=== PATIENT | male | born 1985 | race African-American/Black ===

== ENCOUNTER 2016-05-08 17:56 | Emergency (ER) | payer SELFPAY ==
[2016-05-08 18:05] VITALS: BP 157/90
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
== END 2016-05-08 19:10 | disposition home or self-care (01) ==
LOC: ER 17:56
DX: S02.2XXA Fracture of nasal bones, initial encounter for closed fracture (principal); W22.8XXA Striking against or struck by other objects, initial encounter
CPT/HCPCS: 70486; 99283

== ENCOUNTER 2017-02-10 17:24 | Emergency (ER) | payer SELFPAY ==
--- NOTE | 2017-02-10 18:08 | ER Document Report ---
ED Neuro Symptoms/Deficit - General Chief Complaint: Facial Droop Stated Complaint: FACIAL NUMBNESS Time Seen by Provider: 02/10/17 17:51 Mode of Arrival: Ambulatory Information source: Patient Notes: This 31-year-old male patient comes emergency room with about a one-week history of left-sided facial weakness. Started with a headache on the left side and behind the eyes. He noticed his left face became weak and drawn. There was some tingling sensation. There are no other symptoms. TRAVEL OUTSIDE OF THE [place] IN LAST 30 DAYS: No - Related Data Allergies/Adverse Reactions: No Known Allergies Allergy (Verified 05/08/16 18:39) Past Medical History - General Information source: Patient - Social History Smoking Status: Never Smoker Cigarette use (# per day): No Chew tobacco use (# tins/day): No Smoking Education Provided: No Frequency of alcohol use: Occasional Drug Abuse: None Lives with: Spouse/Significant other Family History: Reviewed & Not Pertinent, Arthritis, DM, Hypertension - Past Medical History Cardiac Medical History: Reports: None Pulmonary Medical History: Reports: None EENT Medical History: Reports: None Neurological Medical History: Reports: None Renal/ Medical History: Reports: None GI Medical History: Reports: None Musculoskeltal Medical History: Reports Hx Musculoskeletal Trauma Psychiatric Medical History: Reports: None Infectious Medical History: Reports: None Past Surgical History: Reports: Hx Orthopedic Surgery - Screw placed in right 4th digit of hand. - Immunizations Immunizations up to date: No Hx Diphtheria, Pertussis, Tetanus Vaccination: Yes Review of Systems - Review of Systems Constitutional: No symptoms reported EENT: See HPI Cardiovascular: No symptoms reported Respiratory: No symptoms reported Gastrointestinal: No symptoms reported Genitourinary: No symptoms reported Musculoskeletal: No symptoms reported Skin: No symptoms reported Hematologic/Lymphatic: No symptoms reported Neurological/Psychological: See HPI Physical Exam - Vital signs Vitals: Temp Pulse Resp BP Pulse Ox 99.4 F 75 18 124/85 97 02/10/17 17:30 02/10/17 17:30 02/10/17 17:30 02/10/17 17:30 02/10/17 17:30 Interpretation: Normal - General General appearance: Appears well, Alert In distress: None - HEENT Head: Normocephalic, Atraumatic Eyes: Normal Extraocular movements intact: Yes Pupils: PERRL Neck: Normal Notes: See the neurological exam below - Respiratory Respiratory status: No respiratory distress - Cardiovascular Rhythm: Regular - Abdominal Inspection: Normal - Back Back: Normal - Extremities General upper extremity: Normal inspection General lower extremity: Normal inspection - Neurological Neuro grossly intact: No Cranial nerves: Facial palsy. No: Forehead sparing Cerebellar coordination: Normal Motor strength normal: LUE, RUE, LLE, RLE Additional motor exam normals: Equal personal loan specialist Notes: Patient is unable to raise his left eyebrow, he is able to close the eye completely but it takes a fair amount of effort to do this. He is able to pull back the left corner of the mouth some but again it takes a fair amount of effort to do this. The tongue does protrude out straight. 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 - Vital Signs Vital signs: Temp Pulse Resp BP Pulse Ox 99.4 F 75 18 124/85 97 02/10/17 17:30 02/10/17 17:30 02/10/17 17:30 02/10/17 17:30 02/10/17 17:30 Discharge - Discharge Clinical Impression: Jarvis's palsy Condition: Stable Disposition: HOME, SELF-CARE Additional Instructions: [place]' Palsy You have been diagnosed as having Jarvis's Palsy -- a paralysis of certain muscles of the face. It's caused by a temporary paralysis of the nerve which controls the muscles. The cause is unknown, but it's thought to be caused by a virus in most cases. The physician's exam shows that this is NOT a stroke. Jarvis's Palsy usually gets better by itself. There is no cure. Sometimes cortisone-type medication is given to decrease nerve swelling. This problem is usually temporary, lasting about three weeks. During that time, you must protect the eye from injury (because the eyelid muscles often do not cover it). Ointment or a patch may be necessary. Be sure to follow up as instructed, and call the doctor at once if new symptoms arise. Report any eye pain, decreasing vision or double vision, or any numbness or weakness outside the face area. //////////////////////////////////////////////////////////////////////////////// ///////////////////////////////////////////////////////////////////////////// Take medications as prescribed. Tape your eye shut at night when you are sleeping. Use lubricating eyedrops or ointment during the day and at bedtime. Follow-up with a local medical doctor or neurologist if not improving over the next few weeks. RETURN TO THE EMERGENCY ROOM IF ANY NEW OR WORSENING SYMPTOMS. Prescriptions: Acyclovir [Acyclovir 400 mg Tablet] 400 mg PO 5XD #50 tablet Prednisone [Deltasone 10 mg Tablet] 10 mg PO ASDIR PRN #45 tablet PRN Reason:
[2017-02-10 18:23] VITALS: BP 118/79
== END 2017-02-10 18:22 | disposition home or self-care (01) ==
LOC: ER 17:24
DX: G51.0 Bell's palsy (principal)
CPT/HCPCS: 99283

== ENCOUNTER → 2019-08-13 | Outpatient (CLI) | payer SELFPAY ==
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
[2019-08-13 11:14] VITALS: BP 171/83
== END ==
LOC: RDC 09:34
PROVIDERS: ATTEND Registered Nurse
DX: Z20.828 Contact with and (suspected) exposure to other viral communicable diseases (principal)
CPT/HCPCS: 87635; C9803